=== PATIENT | female | born 1950 | race American Indian/Alaskan Native ===

== ENCOUNTER 2016-10-28 11:45 | Outpatient (CLI) | payer OTHER ==
[2016-10-28] MEDS ORDERED: PROVENTIL IH ONE (12:04)
== END 2016-10-28 11:46 | disposition home or self-care (01) ==
LOC: PF 11:45
PROVIDERS: ATTEND Internal Medicine
DX: D86.9 Sarcoidosis, unspecified (principal); M13.872 Other specified arthritis, left ankle and foot
CPT/HCPCS: 94060; 94640; 94729

== ENCOUNTER 2018-08-08 10:35 | Emergency (ER) | payer MEDICARE, OTHER ==
--- NOTE | 2018-08-08 11:05 | Emergency Department Report ---
- General Chief Complaint: Upper Respiratory Infection Stated Complaint: CHEST PAIN Time Seen by Provider: 08/08/18 11:04 Source: patient Mode of arrival: Ambulatory Limitations: No Limitations - History of Present Illness Initial Comments: C6 is 8-year-old -[place] female presents to the emergency room for cough and cold symptoms for the last 2 days. Patient reports chest pain hurts when she coughs too much. She admits to headache. Patient has a past medical history of hypertension and sarcoidosis. Patient reports she took Tylenol last night without much relief. Patient reports she took TheraFlu and a drop soup. He doesn't reports a low-grade fever. She says she just feels hot at night. Patient is followed by Stan Upton MD Complaint: cough, nasal congestion -: days(s) (2) Severity: moderate Consistency: constant Improves With: nothing Worsens With: nothing Associated Symptoms: chills, headache, nasal congestion, cough Treatments Prior to Arrival: "cold medicine" - Related Data Previous Rx's Medication Instructions Recorded Last Taken Type Azithromycin [Zithromax Z-AMBER] 250 mg PO QDAY 5 Days #6 tablet 08/08/18 Unknown Rx Benzonatate [Tessalon Perles] 100 mg PO Q8HR #15 capsule 08/08/18 Unknown Rx Allergies Allergy/AdvReac Type Severity Reaction Status Date / Time Penicillins Allergy Swelling Unverified 10/28/16 11:46 pineapple Allergy Rash Unverified 10/28/16 11:46 ED Review of Systems ROS: Stated complaint: CHEST PAIN Other details as noted in HPI Comment: All other systems reviewed and negative Respiratory: cough, SOB with exertion Cardiovascular: chest pain (worse with cough). denies: palpitations Endocrine: no symptoms reported Gastrointestinal: denies: abdominal pain, nausea, diarrhea Genitourinary: denies: urgency, dysuria, discharge Musculoskeletal: denies: back pain, joint swelling, arthralgia Neurological: headache ED Past Medical Hx - Past Medical History Previous Medical History?: Yes Hx Hypertension: Yes Additional medical history: 'thyoid problems" Goiter, Sarcodisis - Surgical History Past Surgical History?: Yes Additional Surgical History: Thyroid - Social History Smoking Status: Never Smoker Substance Use Type: Alcohol, Prescribed - Medications Home Medications: Home Medications Medication Instructions Recorded Confirmed Last Taken Type Azithromycin [Zithromax Z-AMBER] 250 mg PO QDAY 5 Days #6 tablet 08/08/18 Unknown Rx Benzonatate [Tessalon Perles] 100 mg PO Q8HR #15 capsule 08/08/18 Unknown Rx ED Physical Exam - General Limitations: No Limitations - Head Head exam: Present: atraumatic, normocephalic - Eye Eye exam: Present: EOMI - ENT ENT exam: Present: mucous membranes moist - Respiratory Respiratory exam: Present: normal lung sounds bilaterally. Absent: respiratory distress - GI/Abdominal GI/Abdominal exam: Present: soft, normal bowel sounds - Neurological Exam Neurological exam: Present: alert, oriented X3 - Psychiatric Psychiatric exam: Present: normal affect, normal mood - Skin Skin exam: Present: warm, dry, intact, normal color. Absent: rash ED Course Vital Signs 08/08/18 10:40 Temperature 98.9 F Pulse Rate 94 H Respiratory 18 Rate Blood Pressure 172/74 O2 Sat by Pulse 99 Oximetry ED Medical Decision Making - Radiology Data Radiology results: report reviewed FINAL REPORT EXAM: XR CHEST ROUTINE 2V HISTORY: cp with cough TECHNIQUE: Chest, two views PRIORS: None. FINDINGS: The heart size is normal. Mediastinal contours are normal. Pulmonary vasculature is not congested. The lungs are clear. There are no pleural effusion seen. There is no evidence of pneumothorax. IMPRESSION: There is no acute abnormality identified. Transcribed By: MARKIE Dictated By: ASHLEY FERNANDEZ MD Electronically Authenticated By: ASHLEY FERNANDEZ MD Signed Date/Time: 08/08/18 120 DD/ 06 TD/TT: 08/08/18 1207 - Medical Decision Making Patient evaluated by this provider in fast track. Patient was given ibuprofen and Tessalon Perles. Chest x-ray shows no no cardiopulmonary concerns. Patient will be discharged home on a Zithromax and since patient has a past medical history sarcoidosis. Also discharged patient on Tessalon Perles. Critical care attestation.: If time is entered above; I have spent that time in minutes in the direct care of this critically ill patient, excluding procedure time. ED Disposition Clinical Impression: URI (upper respiratory infection) Disposition: DC-01 TO HOME OR SELFCARE Is pt being admited?: No Does the pt Need Aspirin: No Condition: Stable Instructions: Upper Respiratory Infection (ED) Additional Instructions: Please complete antibiotics as prescribed. Cough medication as needed. Follow up with her primary care provider if his symptoms persist or gets worse. Please increase her fluid intake and advance her diet as tolerated. Prescriptions: Azithromycin [Zithromax Z-AMBER] 250 mg PO QDAY 5 Days #6 tablet Benzonatate [Tessalon Perles] 100 mg PO Q8HR #15 capsule Referrals: [facility] [Outside] - 3-5 Days
[2018-08-08] MEDS ORDERED: TESSALON PERLES PO ONE (11:15)
[2018-08-08] MEDS ORDERED: IBUPROFEN PO ONE (11:15)
--- NOTE | 2018-08-08 12:08 | XRay Report ---
FINAL REPORT EXAM: XR CHEST ROUTINE 2V HISTORY: cp with cough TECHNIQUE: Chest, two views PRIORS: None. FINDINGS: The heart size is normal. Mediastinal contours are normal. Pulmonary vasculature is not congested. The lungs are clear. There are no pleural effusion seen. There is no evidence of pneumothorax. IMPRESSION: There is no acute abnormality identified.
[2018-08-09 13:54] VITALS: BP 172/74
== END 2018-08-08 13:10 | disposition home or self-care (01) ==
LOC: ED 10:35
DX: J06.9 Acute upper respiratory infection, unspecified (principal); I10 Essential (primary) hypertension; Z88.0 Allergy status to penicillin; Z91.018 Allergy to other foods
CPT/HCPCS: 71046; 99283